=== PATIENT | male | born 2000 | race Caucasian/White ===

== ENCOUNTER 2018-04-05 15:27 | Emergency (ER) | payer BC, MEDICAID ==
[2018-04-05 15:28] VITALS: BMI 35.4
[2018-04-05 15:50] VITALS: RESP 18
--- NOTE | 2018-04-05 18:36 | ED PDOC ---
Arrival/HPI - General Chief Complaint: ENT Problem Time Seen by Provider: 04/05/18 16:28 Historian: Patient - History of Present Illness Narrative History of Present Illness (Text): 04/05/18 18:33 17-year-old male presents today with right ear pain 5 days. Patient states he was seen by the ears nose and throat doctor on Monday and was given [id number] pain medication eardrops. Patient states he was not given any antibiotics. He denies fevers or chills. He is complaining of pain to the ear or worsening pain radiating into the jaw. He is complaining of decreased hearing. Patient denies fevers or chills. No chest pain or shortness of breath. He denies cough or nasal congestion. No vomiting. No other complaints Past Medical History - Provider Review Nursing Documentation Reviewed: Yes - Travel History Have you recently traveled outside [place] w/in the past 3 mons?: No - Tetanus Immunization Tetanus Immunization: Up to Date - Psychiatric Hx Substance Use: Yes - Anesthesia Hx Anesthesia: Yes Hx Anesthesia Reactions: No Hx Malignant Hyperthermia: No Family/Social History - Physician Review Nursing Documentation Reviewed: Yes Family/Social History: Unknown Family HX Smoking Status: Never Smoked Hx Alcohol Use: Yes Frequency of alcohol use: Socially Hx Substance Use: Yes Substance used: marijuana Allergies/Home Meds Allergies/Adverse Reactions: Allergies No Known Allergies Allergy (Verified 07/03/15 14:11) Review of Systems - Review of Systems Constitutional: absent: Fatigue, Fevers ENT: Hearing Changes, Sinus Congestion, Other (right ear pain). absent: Sore Throat Respiratory: absent: SOB, Cough Cardiovascular: absent: Chest Pain, Palpitations Gastrointestinal: absent: Abdominal Pain, Diarrhea, Vomiting Musculoskeletal: absent: Arthralgias, Back Pain, Neck Pain Neurological: Headache. absent: Dizziness Psychiatric: absent: Anxiety, Depression Physical Exam Vital Signs Reviewed: Yes Vital Signs Temp Pulse Resp BP Pulse Ox 04/05/18 15:49 98.4 F 92 H 18 158/95 H 97 Temperature: Afebrile Blood Pressure: Hypertensive Pulse: Regular Respiratory Rate: Normal Appearance: Positive for: Well-Appearing, Non-Toxic, Comfortable Pain Distress: None Mental Status: Positive for: Alert and Oriented X 3 - Systems Exam Head: Present: Atraumatic Pupils: Present: PERRL Extroacular Muscles: Present: EOMI Conjunctiva: Present: Normal Ears: Present: Other (right TM; + canal edema, unable to visualize TM; + white discharge noted; + pinna pull; minimal periauricular tenderness; minimal posterior auricular tenderness. + minimal mastoid tenderness without erythema or edema. ). No: NORMAL TM, Normal Canal Mouth: Present: Moist Mucous Membranes Pharnyx: Present: Normal. No: ERYTHEMA, EXUDATE Nose (External): Present: Atraumatic Nose (Internal): Present: Normal Inspection Neck: Present: Normal Range of Motion, Trachea Midline. No: Lymphadenopathy Respiratory/Chest: Present: Clear to Auscultation, Good Air Exchange. No: Respiratory Distress, Accessory Muscle Use Cardiovascular: Present: Regular Rate and Rhythm, Normal S1, S2. No: Murmurs Neurological: Present: GCS=15 Skin: Present: Warm, Dry, Normal Color. No: Rashes Psychiatric: Present: Alert, Oriented x 3 Medical Decision Making ED Course and Treatment: 04/05/18 18:50 Patient is nontoxic well appearing in no distress. Vital signs are stable toradol IM ct IAC: pending pt feeling better after medications; Patient does not want to stay and wait for CAT scan results. I've advised the patient that if the CAT scan is abnormal he will need to stay in the hospital for IV antibiotics. Patient states he cannot wait any longer and wants to go home. I will sign the patient out AGAINST MEDICAL ADVICE with prescriptions for amoxicillin and Floxin otic eardrops. I've advised follow-up with the ENT specialist tomorrow and advised immediate return if symptoms worsen persist or if new concerning symptoms develop will given patient dose of amoxicillin in ER. will give rx for floxin otic and amoxicillin PO. Patient has been advised to not leave the emergency room but has decided to go AGAINST MEDICAL ADVICE. The patient possesses capacity to make decisions and has voiced understanding to all my warnings of potential worsening of the condition for which medical care was sought. I have discussed all known and potential risks and consequences to the patient leaving AGAINST MEDICAL ADVICE. Patient is leaving against medical advise. AMA form signed. witness by SUJATHA ZUNIGA. pt has left AMA without CT results; i advised him to return to continue his care. f/u with ENT specialist and take medications. I advised him that if CT is Positive for mastoiditis that he will need IV abx. all aspects of this case were discussed the attending of record. IMPRESSION; otitis externa ,otitis media RETURN IF YOU WISH TO CONTINUE YOUR CARE Motrin every 6 hours as needed for pain/fever reduction Increase fluids amoxicilllin 3 times daily x10 days Floxin otic; 10 drops to affected ear once daily Follow up with the ENT specialist TOMORROW. Follow up primary care physician within the next 2 days Return if symptoms worsen persist or if the symptoms develop Reassessment Condition: Re-examined, Improved - RAD Interpretation Radiology Orders: 04/05/18 16:29 IAC W/O CONTRAST [CT] Stat - Medication Orders Current Medication Orders: Discontinued Medications Ketorolac Tromethamine (Toradol) 60 mg IM STAT STA Stop: 04/05/18 16:29 Last Admin: 04/05/18 17:39 Dose: 60 mg MAR Pain Assessment Document 04/05/18 17:39 HI (Rec: 04/05/18 17:40 [place] [facility] [place] Pain Reassessment Is this a pain reassessment? No Sleep Is patient sleeping during reassessment? No Presence of Pain Presence of Pain Yes Pain Scale Used Protocol: PSCALES Pain Scale Used Numeric Description Intensity of Pain at present 7 Acceptable Level of Pain 1 Pain Behavior Facial Grimacing IM Administration Charges Document 04/05/18 17:39 HI (Rec: 04/05/18 17:40 HI [facility] [id number] Injection Site MAR Injection Site Left Gluteus Nagi Charges for Administration # of IM Administrations 1 Disposition/Present on Arrival - Present on Arrival Any Indicators Present on Arrival: No History of DVT/PE: No History of Uncontrolled Diabetes: No Urinary Catheter: No History of Decub. Ulcer: No History Surgical Site Infection Following: None - Disposition Have Diagnosis and Disposition been Completed?: Yes Diagnosis: Otitis media, Otitis externa Disposition: AGAINST MEDICAL ADVICE Disposition Time: 18:00 Patient Plan: Other (AMA) Patient Problems: Current Active Problems Problem Status Onset Otitis externa Acute Otitis media Acute Condition: UNKNOWN Discharge Instructions (ExitCare): Ear Infections (Otitis Media) (DC), Outer Ear Infection (DC) Additional Instructions: RETURN IF YOU WISH TO CONTINUE YOUR CARE. Motrin every 6 hours as needed for pain/fever reduction Increase fluids amoxicilllin 3 times daily x10 days Floxin otic; 10 drops to affected ear once daily Follow up with the ENT specialist TOMORROW. Follow up primary care physician within the next 2 days Return if symptoms worsen persist or if the symptoms develop Prescriptions: Amoxicillin 500 mg PO TID #30 tab Ibuprofen [Motrin] 600 mg PO Q6H PRN #20 tab PRN Reason: pain/fever reduction Ofloxacin Otic 0.3% [Floxin 0.3% Otic Soln] 10 drop AD DAILY #1 bottle Referrals: Rajiv Sharma DO [Staff Provider] - Follow up with primary Rhonda Salazar MD [Medical Doctor] - Follow up with primary [facility] [Outside] - Follow up with primary Forms: [facility] ([place]), WORK NOTE, SCHOOL NOTE
[2018-04-05 19:22] VITALS: BP 140/79; PULSE 81; TEMP 98.3; O2SAT 99
--- NOTE | 2018-04-06 09:00 | CT ---
Date of service: 04/05/2018 PROCEDURE: CT OF THE TEMPORAL BONES WITHOUT CONTRAST HISTORY: right ear infection/pain/swelling, headache COMPARISON: None available. TECHNIQUE: High resolution axial images of the temporal bones were obtained. Coronal and sagittal reformats were generated. Radiation dose: Total exam DLP = 726.72 mGy-cm. This CT exam was performed using one or more of the following dose reduction techniques: Automated exposure control, adjustment of the mA and/or kV according to patient size, and/or use of iterative reconstruction technique. FINDINGS: RIGHT TEMPORAL BONE: RIGHT MIDDLE EAR: There is nearly complete opacification of the right middle ear cavity. The ossicles are surrounded by soft tissue. There is no disruption of the ossicles and no erosion of the bony scutum. RIGHT INNER EAR: Cochlea: Normal Semicircular canals: Normal RIGHT MASTOID AIR CELLS: Normal RIGHT INTERNAL AUDITORY CANAL: Normal RIGHT EXTERNAL AUDITORY CANAL: There is complete opacification of the external auditory canal and inflammatory changes in the external ear. Findings are consistent with otitis externa RIGHT VESTIBULAR AND COCHLEAR AQUEDUCT: Normal OTHER: The findings were discussed with Jacque Jimenez at 10 p.m. LEFT TEMPORAL BONE: LEFT MIDDLE EAR: Normal LEFT INNER EAR: Cochlea: Normal Semicircular canals: Normal LEFT MASTOID AIR CELLS: Normal LEFT INTERNAL AUDITORY CANAL: Normal LEFT EXTERNAL AUDITORY CANAL: Normal LEFT VESTIBULAR AND COCHLEAR AQUEDUCTS: Normal OTHER FINDINGS: None . IMPRESSION: Severe right-sided otitis externa and otitis media. No evidence of mastoiditis.
== END 2018-04-05 19:22 | disposition left against medical advice (07) ==
LOC: ED 15:27
DX: H66.91 Otitis media, unspecified, right ear (principal); H60.91 Unspecified otitis externa, right ear
CPT/HCPCS: 70480; 96372; 99284; J1885